=== PATIENT | female | born 1970 | race Caucasian/White ===

== ENCOUNTER 2017-04-21 13:15 | Emergency (ER) | payer BC ==
[2017-04-21] MEDS ORDERED: NS 0.9% 1000 ML* 1,000 ML IV ONE (14:17)
[2017-04-21] MEDS ORDERED: diPHENhydraMINE IV* 50 MG/ML 1 ml VIAL (BENADRYL) IV ONE (14:18)
[2017-04-21] MEDS ORDERED: Famotidine IV* 10 MG/ML 2 ML (20 mg) IV SLOW PU ONE (14:18)
--- NOTE | 2017-04-21 14:26 | UC ---
Headache HPI - HPI Summary HPI Summary: Patient presents with complaints of headache, onset was 2 a.m that come on gradually, global, worse with light, sound and associated nausea and vomiting. she reports that she has had an increased frequency of headaches for the last 2 years. She denies fever, chills, neck pain, any recent injury or trauma. She also reports no recent travel, or ill contact. She also complains of a labia lump that is not painful, and would like to have it checked out while she is here. - History Of Current Complaint Chief Complaint: UCHeadache Stated Complaint: VOMITING HEADACHE Time Seen by Provider: 04/21/17 14:09 Hx Obtained From: Patient Hx Last Menstrual Period: 03/01/17 ?: No Onset/Duration: Gradual Onset, Lasting Hours Onset Of Symptoms: Gradual Initially Headache Was: Severe Currently Pain Is: Moderate Timing: Constant Character: Throbbing Location of Headache: Diffuse Aggravating Factor: Exertion Allevating Factors: Rest Associated Signs And Symptoms: Positive: Negative Related History: Similar Episode/DX As: - migraine headache - Risk Factors SAH Risk Factors: Negative Meningitis Risk Factors: Negative SDH Risk Factors: Negative Temporal Arteritis Risk Factors: Negative - Allergies/Home Medications Allergies/Adverse Reactions: Allergies Allergy/AdvReac Type Severity Reaction Status Date / Time Prednisone Allergy Abdominal Verified 04/21/17 13:26 Pain PMH/Surg Hx/FS Hx/Imm Hx Previously Healthy: Yes Cardiovascular History: Other - migraine headaches Other Cardiovascular History: headache - Surgical History Surgical History: Yes Surgery Procedure, Year, and Place: 2 c-sections and 1 d&c - Family History Known Family History: Positive: Cardiac Disease, Hypertension - Social History Alcohol Use: Weekly Substance Use Type: None Smoking Status (MU): Never Smoked Tobacco Review of Systems Gastrointestinal: Vomiting Genitourinary: Other - labia lesion Neurological: Headache All Other Systems Reviewed And Are Negative: Yes Physical Exam Triage Information Reviewed: Yes Appearance: Pain Distress Vital Signs: Initial Vital Signs Temp 98.2 F 04/21/17 13:22 Pulse 85 04/21/17 13:22 Resp 16 04/21/17 13:22 BP 162/98 04/21/17 13:22 Pulse Ox 100 04/21/17 13:22 Vital Signs Reviewed: Yes Eye Exam: Normal ENT Exam: Normal Neck exam: Normal Respiratory Exam: Normal Cardiovascular Exam: Normal Abdominal Exam: Normal Musculoskeletal Exam: Normal Neurological Exam: Normal Headache Course/Dx - Course Course Of Treatment: Patient presents with pase medical history of migraine headaches, with reported findings typical of her headache patterns. onset 2 am, gradual onset, with associated n/v. Ct brain was obtained and was neg. Patient was given IV NS 1 liter, benendry 50 mg, pepsid 20 mg, with ana maria good repsonce and improved pain. Normal neurologic examination. - Differential Dx/Diagnosis Provider Diagnoses: headache. nausea. vomiting. blood blister labial Discharge - Discharge Plan Condition: Stable Disposition: HOME Prescriptions: Ondansetron HCl [Zofran 4 MG TAB] 4 mg PO Q8HR PRN #14 tab PRN Reason: Nausea Patient Education Materials: General Headache (ED) Referrals: Heike Dias MD [Primary Care Provider] -
--- NOTE | 2017-04-21 14:47 | RAD ---
INDICATION: Worsening headache. COMPARISON: There are no prior studies available for comparison. TECHNIQUE: Contiguous axial sections of the brain were obtained from the skull base to the vertex without contrast. FINDINGS: The ventricles, cisterns and sulci are within normal limits. No significant focal abnormality or mass effect is seen. There is no evidence for hemorrhage. There is opacification of a couple bilateral ethmoid air cells. The visualized portion of the paranasal sinuses and mastoid air cells otherwise appear clear. IMPRESSION: NO EVIDENCE FOR ACUTE INTRACRANIAL ABNORMALITY.
[2017-04-21] MEDS ORDERED: Metoclopramide IV* 5 MG/ML 2 ML VIAL IV ONE (14:51)
[2017-04-21 16:57] VITALS: BP 167/88
== END 2017-04-21 16:09 | disposition home or self-care (01) ==
LOC: UCEAST 13:15
DX: R51 Headache (principal); R11.2 Nausea with vomiting, unspecified; S30.824A Blister (nonthermal) of vagina and vulva, initial encounter
CPT/HCPCS: 70450; 96360; 96361; 96374; 96375; 99212; G0463; J1200

== ENCOUNTER 2017-06-30 17:02 | Emergency (ER) | payer BC, OTHER ==
[2017-06-30] MEDS ORDERED: Albuterol/Ipratropium NEB.SOL* Albuterol 2.5 MG/Ipratropium 0.5 MG 3 ML INH ONE (17:23)
--- NOTE | 2017-06-30 17:39 | RAD ---
INDICATION: Productive cough and wheezing. COMPARISON: There are no prior studies available for comparison. TECHNIQUE: Dual-energy PA and lateral views of the chest were obtained. FINDINGS: The heart is within normal limits in size. Mediastinal and hilar contours appear within normal limits. The lungs are clear. No pleural effusion is present. IMPRESSION: NO EVIDENCE FOR ACTIVE CARDIOPULMONARY DISEASE.
--- NOTE | 2017-06-30 18:43 | UC ---
Throat Pain/Nasal Moreno HPI - HPI Summary HPI Summary: FIVE DAYS OF CHEST CONGESTION, COUGH, WHEEZING. NO CHEST PAIN OR SHORTNESS OF BREATH. NO FEVER. NO LEG PAIN. HAS HAD SINUS PRESSURE AND CONGESTION. - History of Current Complaint Chief Complaint: UCRespiratory Stated Complaint: CHEST CONGESTION/TIGHT Time Seen by Provider: 06/30/17 17:14 Hx Obtained From: Patient Hx Last Menstrual Period: 3 wks ago Onset/Duration: Gradual Onset, Lasting Days, Still Present Severity: Moderate Pain Intensity: 0 Pain Scale Used: 0-10 Numeric Cough: Productive Associated Signs & Symptoms: Positive: Wheezing, Hoarseness, Sinus Discomfort, Nasal Discharge - Epiglottits Risk Factors Epiglottis Risk Factors: Negative - Allergies/Home Medications Allergies/Adverse Reactions: Allergies Allergy/AdvReac Type Severity Reaction Status Date / Time Prednisone Allergy Abdominal Verified 06/30/17 17:11 Pain Home Medications: Home Medications Digestive Enzymes [Enzymatic Digestant Dual] 06/30/17 [History Confirmed ] Psyllium Husk (Bulk) [Psyllium Husk] 06/30/17 [History Confirmed 06/30/17] PMH/Surg Hx/FS Hx/Imm Hx Previously Healthy: Yes - Surgical History Surgical History: Yes Surgery Procedure, Year, and Place: 2 c-sections and 1 d&c - Family History Known Family History: Positive: Cardiac Disease, Hypertension, Respiratory Disease - MOTHER ASTHMA - Social History Occupation: Employed Full-time Lives: With Family Alcohol Use: None Substance Use Type: None Smoking Status (MU): Never Smoked Tobacco Review of Systems Constitutional: Negative Skin: Negative Eyes: Negative ENT: Nasal Discharge, Sinus Congestion, Sinus Pain/Tenderness Respiratory: Cough Cardiovascular: Negative Gastrointestinal: Negative Genitourinary: Negative Motor: Negative Neurovascular: Negative Musculoskeletal: Negative Neurological: Negative Psychological: Negative All Other Systems Reviewed And Are Negative: Yes Physical Exam Triage Information Reviewed: Yes Appearance: No Pain Distress, Well-Nourished, Ill-Appearing - MODERATELY Vital Signs: Initial Vital Signs Temp 98.9 F 06/30/17 17:08 Pulse 85 06/30/17 17:08 Resp 12 06/30/17 17:08 Pulse Ox 98 06/30/17 17:08 Vital Signs Reviewed: Yes Eye Exam: Normal ENT: Positive: Hearing grossly normal, Pharynx normal, Nasal congestion, TM bulging, TM dull Dental Exam: Normal Neck exam: Normal Neck: Positive: Supple, Nontender, No Lymphadenopathy Respiratory Exam: Other - COUGH Respiratory: Positive: Lungs clear, Normal breath sounds, No respiratory distress, No accessory muscle use, Wheezing Cardiovascular Exam: Normal Cardiovascular: Positive: RRR, No Murmur, Pulses Normal Abdominal Exam: Normal Abdomen Description: Positive: Nontender, No Organomegaly Musculoskeletal Exam: Normal Musculoskeletal: Positive: Strength Intact, ROM Intact Neurological Exam: Normal Psychological Exam: Normal Psychological: Positive: Normal Response To Family Skin Exam: Normal Throat Pain/Nasal Course/Dx - Differential Dx/Diagnosis Differential Diagnosis/HQI/PQRI: Pharyngitis, Sinusitis, Tonsillitis, URI Provider Diagnoses: SINUSITIS; BRONCHITIS WITH BRONCHOSPASM Discharge - Discharge Plan Condition: Stable Disposition: HOME Prescriptions: Albuterol HFA INHALER* [Ventolin HFA Inhaler*] 1 - 2 puff INH Q6H PRN #1 mdi PRN Reason: Wheezing Benzonatate CAP* [Tessalon 100 MG CAP*] 100 mg PO TID PRN #15 cap PRN Reason: Cough DOXYcycline CAP(*) [DOXYcycline 100MG CAP(*)] 100 mg PO BID #20 cap Patient Education Materials: Sinusitis (ED), Acute Bronchitis (ED), Bronchospasm (ED) Referrals: Heike Dias MD [Primary Care Provider] -
== END 2017-06-30 18:12 | disposition home or self-care (01) ==
LOC: UCEAST 17:02
DX: J32.9 Chronic sinusitis, unspecified (principal); J20.9 Acute bronchitis, unspecified; Z88.8 Allergy status to other drugs, medicaments and biological substances
CPT/HCPCS: 71020; 99212; A9270-GY; G0463

== ENCOUNTER 2018-01-09 07:09 | Emergency (ER) | payer BC ==
[2018-01-09 07:30] VITALS: BP 142/90
--- NOTE | 2018-01-09 07:52 | UC ---
Abdominal Pain Female HPI - HPI Summary HPI Summary: PT REPORTS HER STOMACH HAS FELT SENSITIVE FOR A COUPLE OF DAYS AND HAD SLIGHT NAUSEA YESTERDAY. WOKE UP THIS MORNING WITH SHARP 8/10 PERIUMBILICAL ABDOMINAL PAIN. WORSE WITH MOVEMENT. DENIES ANY URINARY SX. NO FEVER. LAST BM THIS MORNING NORMAL. - History of Current Complaint Chief Complaint: UCAbdominalPain Stated Complaint: ABD PAIN Time Seen by Provider: 01/09/18 07:29 Hx Obtained From: Patient, Family/Blunger - Hx Last Menstrual Period: 01/09/18 Onset/Duration: Gradual Onset, Lasting Days, Still Present Timing: Constant Severity Initially: Mild Severity Currently: Moderate Pain Intensity: 8 Pain Scale Used: 0-10 Numeric Location: Diffuse Radiates: No Character: Sharp Aggravating Factor(s): Movement Alleviating Factor(s): Nothing Associated Signs and Symptoms: Positive: Nausea. Negative: Back Pain, Constipation, Blood in Stool, Urinary Symptoms Allergies/Adverse Reactions: Allergies Allergy/AdvReac Type Severity Reaction Status Date / Time prednisone Allergy Abdominal Verified 01/09/18 07:19 Pain Home Medications: Home Medications Acetaminophen/Diphenhydramine [Tylenol Pm Ex-Strength Caplet] 2 tab PO BEDTIME PRN 01/09/18 [History Confirmed 01/09/18] Active Pk 2 cap PO DAILY 01/09/18 [History Confirmed 01/09/18] amLODIPine TAB* [Norvasc 5 mg TAB*] 10 mg PO DAILY 01/09/18 [History Confirmed 01/09/18] PMH/Surg Hx/FS Hx/Imm Hx Endocrine History: Diabetes Cardiovascular History: Hypertension Respiratory History: Asthma GI/ History: Ulcer - Surgical History Surgical History: Yes Surgery Procedure, Year, and Place: 2 c-sections and 1 d&c - Family History Known Family History: Positive: Cardiac Disease, Hypertension, Diabetes, Respiratory Disease - MOTHER ASTHMA - Social History Alcohol Use: Rare Substance Use Type: None Smoking Status (MU): Never Smoked Tobacco Review of Systems Constitutional: Negative Respiratory: Negative Cardiovascular: Negative Gastrointestinal: Abdominal Pain, Nausea Genitourinary: Negative All Other Systems Reviewed And Are Negative: Yes Physical Exam Triage Information Reviewed: Yes Appearance: Well-Nourished, Pain Distress - MODERATE Vital Signs: Initial Vital Signs Temp 98.1 F 01/09/18 07:23 Pulse 79 01/09/18 07:23 Resp 18 01/09/18 07:23 BP 142/90 01/09/18 07:23 Pulse Ox 100 01/09/18 07:23 Vital Signs Reviewed: Yes Eyes: Positive: Conjunctiva Clear ENT: Positive: Hearing grossly normal Neck: Positive: Supple Respiratory Exam: Normal Cardiovascular Exam: Normal Abdomen Description: Positive: Soft, Other: - TTP DIFFUSELY, NO REBOUND OR RIGIDITY. Negative: CVA Tenderness (R), CVA Tenderness (L), Distended, Guarding Bowel Sounds: Positive: Present Musculoskeletal: Positive: No Edema Neurological: Positive: Alert Psychological: Positive: Normal Response To Family, Age Appropriate Behavior Skin: Negative: rashes Abd Pain Female Course/Dx - Course Course Of Treatment: PT DECLINES URINE DIP. PREFERS TO WAIT FOR ED EVAL. TO [facility] [place] ED BY PRIVATE CAR - Differential Dx/Diagnosis Provider Diagnoses: DIFFUSE ABDOMINAL PAIN, NOS Discharge - Discharge Plan Condition: Stable Disposition: OTHER Discharge Disposition Comment: TO [facility] [place] ED BY PRIVATE CAR Patient Education Materials: Abdominal Pain (ED) Referrals: Heike Dias MD [Primary Care Provider] - If Needed Additional Instructions: UNCLEAR ETIOLOGY OF YOUR SYMPTOMS. GO DIRECTLY TO THE [facility] [place] ED FOR FURTHER EVALUATION.
== END 2018-01-09 07:58 ==
LOC: UCEAST 07:09
DX: R10.84 Generalized abdominal pain (principal); R11.0 Nausea; E11.9 Type 2 diabetes mellitus without complications; I10 Essential (primary) hypertension; J45.909 Unspecified asthma, uncomplicated; Z88.8 Allergy status to other drugs, medicaments and biological substances
CPT/HCPCS: 99212; G0463

== ENCOUNTER 2018-01-09 08:29 | Emergency (ER) | payer BC ==
[2018-01-09 09:17] LABS: ABS Basophils 0 10^3/ul (0-0.2); ABS Eosinophils 0.4 10^3/ul (0-0.6); ABS Lymphocytes 2.3 10^3/ul (1.0-4.8); ABS Neutrophils 8.9 10^3/ul (1.5-7.7); ABS Nucleated RBC 0 10^3/ul; Eosinophil % 2.8 % (0-6); Hematocrit 36 % (35-47); Hemoglobin 12.2 g/dl (12.0-16.0); Lymphocyte % 18.3 % (25-47); Mean Corpuscular HGB Conc 34 g/dl (31-36); Mean Corpuscular Hemoglobin 31 pg (27-31); Mean Corpuscular Volume 91 fL (80-97); Mean Platelet Volume 8 um3 (7.4-10.4); Nucleated Red Blood Cells % 0; Platelet Count 323 10^3/ul (150-450); Red Blood Count 3.98 10^6/ul (4.0-5.4); Red Cell Distribution Width 14 % (10.5-15); White Blood Count 12.5 10^3/ul (3.5-10.8)
[2018-01-09 09:29] LABS: EGFR Non-African American 84.5 (>60)
[2018-01-09 09:33] LABS: Urine Appearance Cloudy; Urine Blood 3+ (Negative); Urine Color Yellow; Urine Ketones Negative (Negative); Urine Protein 1+(30 mg/dL) (Negative); Urine Specific Gravity 1.017 (1.010-1.030); Urine Urobilinogen Negative (Negative)
[2018-01-09] MEDS ORDERED: Famotidine IV * 20 MG in NS 0.9% 100 ML* 100 ML IVPB ONE (10:43)
[2018-01-09] MEDS ORDERED: Pantoprazole IV* 40 MG IV ONE (10:43)
--- NOTE | 2018-01-09 10:47 | ED ---
Abdominal Pain/Female - HPI Summary HPI Summary: 47 female presents to ED with complaints of upper abdominal pain that comes and goes and began this morning. Patient states she woke up having acute sharp pain above her belly button and in the epigastric area. States pain spontaneously resolved however has returned a few times since. States it lasts a few minutes each time. Is associated with nausea. Denies vomiting, fever/chills, diarrhea and constipation. States her last normal bowel movement was this morning and without blood. Admits to past medical history of a stomach ulcer and GERD, with similar symptoms. Denies chest pain, trouble breathing and frequent burping. Has related it to certain foods makes it worse. Denies frequent NSAID use, as she was told during last ulcer diagnosis that they could have been the cause. Occasional alcohol use. No cigarettes use. PMHx significant for ulcer, GERD and HTN. No other complaints. Admits to eating acidic, spicy, citric foods. Admits to increased stress. No lower abdominal pain. Has not tried any medications. No urinary symptoms or genitalia symptoms. Concerned for pancreatitis. Is currently on menstrual cycle. - History of Current Complaint Chief Complaint: EDAbdPain Stated Complaint: ABD PAIN-CC TRANSFER Time Seen by Provider: 01/09/18 08:55 Hx Obtained From: Patient Hx Last Menstrual Period: 01/09/18 Onset/Duration: Sudden Onset, Lasting Hours, Resolved Timing: Intermittent Episode Lasting - minutes Severity Initially: Moderate Severity Currently: None Pain Intensity: 4 Pain Scale Used: 0-10 Numeric Location: Epigastric, Umbilical - "on top of belly button" Radiates: No Character: Sharp, Burning, Other: - now its just "tender" Aggravating Factor(s): Food - ? Alleviating Factor(s): Spontaneous Resolution Associated Signs and Symptoms: Positive: Nausea. 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 Hx Chemotherapy: No Hx Radiation Therapy: No - Surgical History Surgery Procedure, Year, and Place: 2 c-sections and 1 d&c - Immunization History Immunizations Up to Date: Yes Infectious Disease History: No Infectious Disease History: Denies: Hx Hepatitis, Hx Human Immunodeficiency Virus (HIV), Traveled Outside the [place] in Last 30 Days - Family History Known Family History: Positive: Cardiac Disease, Hypertension, Diabetes, Respiratory Disease - MOTHER ASTHMA - Social History Alcohol Use: Rare Substance Use Type: Reports: None Hx Tobacco Use: No Smoking Status (MU): Never Smoked Tobacco Review of Systems Constitutional: Negative Cardiovascular: Negative Respiratory: Negative Positive: Abdominal Pain, Nausea Genitourinary: Negative All Other Systems Reviewed And Are Negative: Yes Physical Exam Triage Information Reviewed: Yes Vital Signs On Initial Exam: Initial Vitals Temp Pulse Resp BP Pulse Ox 97.8 F 67 18 139/85 100 01/09/18 08:33 01/09/18 08:33 01/09/18 08:33 01/09/18 08:33 01/09/18 08:33 Vital Signs Reviewed: Yes Appearance: Positive: Well-Appearing, No Pain Distress, Well-Nourished Skin: Positive: Warm, Skin Color Reflects Adequate Perfusion, Dry. Negative: Cold, Numb Head/Face: Positive: Normal Head/Face Inspection Neck: Positive: Supple, Nontender Respiratory/Lung Sounds: Positive: Clear to Auscultation, Breath Sounds Present. Negative: Rales, Rhonchi, Wheezes Cardiovascular: Positive: Normal, RRR, Bradycardia. Negative: Murmur, Rub Abdomen Description: Positive: Nontender - very mildly epigastric area on deep palpation, diffusely "uncomfortable and sensitive" throughout abdomen per patient, No Organomegaly, Soft, Other: - no rebound, rovsings, psoas and murphys , all negative. Negative: CVA Tenderness (R), CVA Tenderness (L), Distended, Guarding, McBurney's Point Tenderness, Peritoneal Signs Bowel Sounds: Positive: Present Musculoskeletal: Positive: Normal, Strength/ROM Intact Neurological: Positive: Normal, Sensory/Motor Intact, Alert, Oriented to Person Place, Time Diagnostics - Vital Signs Vital Signs Temp Pulse Resp BP Pulse Ox 01/09/18 10:30 135/90 01/09/18 10:00 72 138/76 100 01/09/18 09:49 72 138/86 100 01/09/18 09:00 70 100 01/09/18 08:50 71 99 01/09/18 08:33 97.8 F 67 18 139/85 100 - Laboratory Lab Results: Lab Results 01/09/18 01/09/18 01/09/18 Range/Units 08:45 09:00 09:00 WBC 12.5 H (3.5-10.8) 10^3/ul RBC 3.98 L (4.0-5.4) 10^6/ul Hgb 12.2 (12.0-16.0) g/dl Hct 36 (35-47) % MCV 91 (80-97) fL MCH 31 (27-31) pg MCHC 34 (31-36) g/dl RDW 14 (10.5-15) % Plt Count 323 (150-450) 10^3/ul MPV 8 (7.4-10.4) um3 Neut % (Auto) 71.0 (38-83) % Lymph % (Auto) 18.3 L (25-47) % [place] % (Auto) 7.6 H (0-7) % Eos % (Auto) 2.8 (0-6) % Baso % (Auto) 0.3 (0-2) % Absolute Neuts (auto) 8.9 H (1.5-7.7) 10^3/ul Absolute Lymphs (auto) 2.3 (1.0-4.8) 10^3/ul Absolute Monos (auto) 1.0 H (0-0.8) 10^3/ul Absolute Eos (auto) 0.4 (0-0.6) 10^3/ul Absolute Basos (auto) 0 (0-0.2) 10^3/ul Absolute Nucleated RBC 0 10^3/ul Nucleated RBC % 0 Sodium 137 (133-145) mmol/L Potassium 4.2 (3.5-5.0) mmol/L Chloride 105 (101-111) mmol/L Carbon Dioxide 28 (22-32) mmol/L Anion Gap 4 (2-11) mmol/L BUN 14 (6-24) mg/dL Creatinine 0.74 (0.51-0.95) mg/dL Est GFR ( Amer) 108.7 (>60) Est GFR (Non-Af Amer) 84.5 (>60) BUN/Creatinine Ratio 18.9 (8-20) Glucose 97 (70-100) mg/dL Lactic Acid (0.5-2.0) mmol/L Calcium 9.2 (8.6-10.3) mg/dL Total Bilirubin 0.50 (0.2-1.0) mg/dL AST 15 (13-39) U/L ALT 14 (7-52) U/L Alkaline Phosphatase 31 L (34-104) U/L C-Reactive Protein 1.46 (< 5.00) mg/L Total Protein 6.9 (6.4-8.9) g/dL Albumin 4.2 (3.2-5.2) g/dL Globulin 2.7 (2-4) g/dL Albumin/Globulin Ratio 1.6 (1-3) Lipase < 10 L (11.0-82.0) U/L Beta HCG, Quant < 0.60 mIU/mL Urine Color Yellow Urine Appearance Cloudy Urine pH 7.0 (5-9) Ur Specific [place] 1.017 (1.010-1.030) Urine Protein 1+(30 mg/dl) H (Negative) Urine Ketones Negative (Negative) Urine Blood 3+ H (Negative) Urine Nitrate Negative (Negative) Urine Bilirubin Negative (Negative) Urine Urobilinogen Negative (Negative) Ur Leukocyte Esterase Negative (Negative) Urine WBC (Auto) Trace(0-5/hpf) (Absent) Urine RBC (Auto) 3+(>10/hpf) H (Absent) Ur Squamous Epith Cells Present H (Absent) Amorphous Crystals Present H (Absent) Urine Bacteria Absent (Absent) Urine Glucose Negative (Negative) 01/09/18 Range/Units 09:00 WBC (3.5-10.8) 10^3/ul RBC (4.0-5.4) 10^6/ul Hgb (12.0-16.0) g/dl Hct (35-47) % MCV (80-97) fL MCH (27-31) pg MCHC (31-36) g/dl RDW (10.5-15) % Plt Count (150-450) 10^3/ul MPV (7.4-10.4) um3 Neut % (Auto) (38-83) % Lymph % (Auto) (25-47) % [place] % (Auto) (0-7) % Eos % (Auto) (0-6) % Baso % (Auto) (0-2) % Absolute Neuts (auto) (1.5-7.7) 10^3/ul Absolute Lymphs (auto) (1.0-4.8) 10^3/ul Absolute Monos (auto) (0-0.8) 10^3/ul Absolute Eos (auto) (0-0.6) 10^3/ul Absolute Basos (auto) (0-0.2) 10^3/ul Absolute Nucleated RBC 10^3/ul Nucleated RBC % Sodium (133-145) mmol/L Potassium (3.5-5.0) mmol/L Chloride (101-111) mmol/L Carbon Dioxide (22-32) mmol/L Anion Gap (2-11) mmol/L BUN (6-24) mg/dL Creatinine (0.51-0.95) mg/dL Est GFR ( Amer) (>60) Est GFR (Non-Af Amer) (>60) BUN/Creatinine Ratio (8-20) Glucose (70-100) mg/dL Lactic Acid 0.7 (0.5-2.0) mmol/L Calcium (8.6-10.3) mg/dL Total Bilirubin (0.2-1.0) mg/dL AST (13-39) U/L ALT (7-52) U/L Alkaline Phosphatase (34-104) U/L C-Reactive Protein (< 5.00) mg/L Total Protein (6.4-8.9) g/dL Albumin (3.2-5.2) g/dL Globulin (2-4) g/dL Albumin/Globulin Ratio (1-3) Lipase (11.0-82.0) U/L Beta HCG, Quant mIU/mL Urine Color Urine Appearance Urine pH (5-9) Ur Specific [place] (1.010-1.030) Urine Protein (Negative) Urine Ketones (Negative) Urine Blood (Negative) Urine Nitrate (Negative) Urine Bilirubin (Negative) Urine Urobilinogen (Negative) Ur Leukocyte Esterase (Negative) Urine WBC (Auto) (Absent) Urine RBC (Auto) (Absent) Ur Squamous Epith Cells (Absent) Amorphous Crystals (Absent) Urine Bacteria (Absent) Urine Glucose (Negative) Result Diagrams: 01/09/18 09:00 01/09/18 09:00 Lab Statement: Any lab studies that have been ordered have been reviewed, and results considered in the medical decision making process. Re-Evaluation - Re-Evaluation First Eval Re-Evaluation Time: 10:30 Change: Improved - patient was feeling better spontaneously. updated on labs, agrees that imaging does not appear necessary at this time and appears to be gastritis/ulcer. Abdominal Pain Fem Course/Dx - Course Course Of Treatment: labs and urinalysis btained and negative. urine has blood however is currently menstruating. no concerning findings, negative lipase. after speaking with patient about potential diagnosis of gastritis/ ulcer. Agrees that she would like to try management and refrain from imaging at this time as not highly suspicous for other etiology at this time. Patient has had ulcer in past with similar symptoms, as well as GERD. Aware of worsening signs and symptoms to watch out for and return if occur as symptoms may worsen or not improve. Patient agrees and understands plan. Given protonix and pepcid while in ED. Recommended continuing omeprazole daily at home along with prn peptobismal to see if relief. normal vitals. educated on foods to avoid and to sit up after eating for atleast 30 minutes. No other concerns at this time. Follow up with pcp. - Diagnoses Differential Diagnosis: Positive: Constipation, Peptic Ulcer Disease, Other - epigastric pain, periumbilical pain, gastritis, GERD, gastric/duodenal ulcer, gas pain. Provider Diagnoses: Epigastric abdominal pain, Gastritis Discharge - Discharge Plan Condition: Stable Disposition: HOME Prescriptions: Omeprazole CAP* [Prilosec CAP* 20 MG] 20 mg PO BID #20 cap. Patient Education Materials: Gastritis (ED), Diet for Stomach Ulcers and Gastritis (ED), Epigastric Pain (ED) Referrals: Heike Dias MD [Primary Care Provider] - Additional Instructions: Take prescribed medication as directed. Also recommend taking pepto-bismal once or twice a day to help with symptoms. Avoid acidic, citric, greasy, and spicy foods when able. Recommend swedish yogurt and daily probiotic. Any new or worsening symptoms (pain increases, location moves, vomiting, changes to bowel movements, fever, vomiting blood) please return to ED immediately. Follow up with PCP to ensure improvement in 2 days.
[2018-01-09 11:07] VITALS: BP 138/90
== END 2018-01-09 11:06 | disposition home or self-care (01) ==
LOC: ED 08:29
DX: R10.10 Upper abdominal pain, unspecified (principal); R10.13 Epigastric pain; Z88.8 Allergy status to other drugs, medicaments and biological substances; R73.03 Prediabetes; K29.70 Gastritis, unspecified, without bleeding
CPT/HCPCS: 36415; 80053; 81003; 81015; 83605; 83690; 84702; 85025; 86140; 96374; 99283